=== PATIENT | female | born 1975 | race Caucasian/White ===

== ENCOUNTER 2020-12-02 09:11 | Emergency (ER) | payer OTHER ==
[~2020-12-02] VITALS: Ht 154.9 cm; Wt 66.2 kg
[2020-12-02 09:20] VITALS: BP 139/85
--- NOTE | 2020-12-02 09:56 | NUR ---
45 YO FEMALE C/O L FLANK PAIN THAT RADIATES TO LEFT UPPER ABDOMEN X 3 DAYS. PT DENIES FEVER, CHILLS, SOB, N/V/D. PT DENIES PROBLEMS WITH URINATION. A&OX4, RR EVEN AND UNLABORED. PMH - DENIES NKDA
[2020-12-02] MEDS ORDERED: KETOROLAC 30 MG/ML VIAL IVP ONE (10:45)
--- NOTE | 2020-12-02 10:54 | NUR ---
RAD AT BEDSIDE
[2020-12-02 11:28] LABS: BASOPHILS # (AUTO) 0.1 K/uL (0.00-0.22); BASOPHILS % (AUTO) 0.4 % (0.0-2.0); EOSINOPHILS # (AUTO) 0.3 K/uL (0-0.4); EOSINOPHILS % (AUTO) 2.3 % (0.0-4.0); HEMATOCRIT 41.4 % (36-48); HEMOGLOBIN 13.9 g/dL (12.0-16.0); LYMPHOCYTES # (AUTO) 3.6 K/uL (2.5-16.5); LYMPHOCYTES % (AUTO) 25.6 % (20.5-51.1); MEAN CORPUSCULAR HEMOGLOBIN 33 pg (27-31); MEAN CORPUSCULAR HGB CONC 34 g/dL (33-37); MEAN CORPUSCULAR VOLUME 96.8 fL (80-94); MONOCYTES # (AUTO) 1.4 K/uL (0.8-1.0); NEUTROPHILS # (AUTO) 8.7 K/uL (1.8-7.7); NEUTROPHILS % (AUTO) 61.7 % (42.2-75.2); PLATELET COUNT (AUTO) 409 K/uL (140-450); RED BLOOD CELL COUNT(AUTO) 4.28 MIL/uL (4.20-5.40); RED CELL DISTRIBUTION WIDTH 13.3 % (11.6-13.7)
[2020-12-02] MEDS ORDERED: cefTRIAXone 1,000 MG VIAL ONE (11:28)
[2020-12-02 11:39] LABS: ANION GAP 11.3 (8-16); CARBON DIOXIDE 27.2 mmol/L (21-32); CREATININE 0.7 mg/dL (0.6-1.3); POTASSIUM 3.5 mmol/L (3.5-5.1); TOTAL BILIRUBIN 0.5 mg/dL (0.0-1.0)
--- NOTE | 2020-12-02 11:49 | NUR ---
TORADOL 30MG GIVEN IVP FOR PAIN C/O 10/17.
--- NOTE | 2020-12-02 12:10 | NUR ---
PATIENT GIVEN A BLANKET, CURRENTLY IN BED AWAKE AND ALERT. RR EVEN AND UNLABORED.
[2020-12-02] MEDS ORDERED: HYDROcodone/APAP 5/325 MG 1 TAB TAB PO ONE (13:35)
[2020-12-02 13:39] LABS: APPEARANCE,URINE CLEAR (CLEAR); BILIRUBIN,URINE NEGATIVE (NEGATIVE); BLOOD, URINE TRACE-I (NEGATIVE); COLOR,URINE YELLOW (YELLOW); LEUKOCYTE ESTERASE ,URINE TRACE (NEGATIVE); NITRITE, URINE NEGATIVE (NEGATIVE); PH,URINE 6.5 (5.0-9.0); UGLUCOSE NEGATIVE (NEGATIVE)
[2020-12-02 13:55] LABS: RBC,URINE 0-5 /HPF (0-5); WBC,URINE 0-5 /HPF (0-5)
--- NOTE | 2020-12-02 14:21 | NUR ---
MD CROWE AT BEDSIDE
[2020-12-02] MEDS ORDERED: CEPH-588 PO (14:27)
[2020-12-02] MEDS ORDERED: NAPR-54 PO (14:27)
[2020-12-02 14:47] VITALS: BP 119/83
--- NOTE | 2020-12-02 14:47 | NUR ---
Patient discharged with v/s stable. Written and verbal after care instructions given and explained. Patient alert, oriented and verbalized understanding of instructions. Ambulatory with steady gait. All questions addressed prior to discharge. ID band removed. Patient advised to follow up with PMD. Rx of KEFLEX, NAPROSYN given. Patient educated on indication of medication including possible reaction and side effects. Opportunity to ask questions provided and answered.
== END 2020-12-02 14:47 | disposition home or self-care (01) ==
LOC: MED 09:11
DX: R10.9 Unspecified abdominal pain (principal); M54.5 Low back pain; R05 Cough; Z79.899 Other long term (current) drug therapy
CPT/HCPCS: 36415; 71045; 80053; 81001; 81025; 85025; 87086; 96365; 96375; 99284; J0696; J1885